=== PATIENT | male | born 1990 | race African-American/Black ===

== ENCOUNTER 2018-12-14 16:08 | Emergency (ER) | payer SELFPAY ==
[~2018-12-14] VITALS: Ht 182.9 cm; Wt 90.7 kg
[2018-12-14 16:39] VITALS: BP 136/90
[2018-12-14] MEDS ORDERED: ORPH-16 PO (16:59)
[2018-12-14] MEDS ORDERED: LACT10SO PO (16:59)
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
[2018-12-14] MEDS ORDERED: HYDROmorphone PF 1 MG/ML DISP.SYRIN IM ONE (17:15)
[2018-12-14] MEDS ORDERED: ORPHENADRINE ER 100 MG TABLET.ER PO ONE (17:15)
[2018-12-14] MEDS ORDERED: HYDROmorphone 2 MG TABLET PO ONE (17:15)
[2018-12-14] MEDS ORDERED: ORPHENADRINE CITRATE 60 MG/2 ML VIAL. IM ONE (17:15)
== END 2018-12-14 17:16 | disposition home or self-care (01) ==
LOC: ER 16:08
DX: G89.18 Other acute postprocedural pain (principal); M25.551 Pain in right hip; K59.00 Constipation, unspecified
CPT/HCPCS: 99283

== ENCOUNTER 2020-10-18 20:30 | Emergency (ER) | payer MEDICAID ==
[~2020-10-18] VITALS: Ht 180.3 cm; Wt 106.0 kg
[~2020-10-18 20:30] MED LIST: LACT10SO2 PO; ORPH-16 PO
[2020-10-18 20:40] VITALS: BP 132/90
[2020-10-18] MEDS ORDERED: HYDR-2759 PO (21:01)
[2020-10-18] MEDS ORDERED: AMOX1TAB61 PO (21:01)
--- NOTE | 2020-10-18 21:01 | PHYS DOC ---
Past History Past Medical History: Asthma, GERD Past Surgical History: Other Additional Past Surgical Histo: per patient, "jules in right leg" Alcohol Use: None Drug Use: None General Adult EDM: Chief Complaint: DENTAL PROBLEM HPI: HPI: 30-year-old male presents with right lower dental pain. The patient was seen by another physician just about 2 weeks ago and placed on 10 days of antibiotics. This improved his dental pain, but his last dose was Monday. Now 2 days later, the pain has come back and he is concerned it still has infection. He is trying to get scheduled with his dentist but his insurance does not kick in for a few more days. Patient denies fever or chills. Review of Systems: Review of Systems: Constitutional: Denies fever or chills Eyes: Denies change in visual acuity HENT: Broken teeth, dental pain Respiratory: Denies cough or shortness of breath Cardiovascular: Denies chest pain or edema GI: Denies abdominal pain, nausea, vomiting, bloody stools or diarrhea : Denies dysuria Musculoskeletal: Denies back pain or joint pain Integument: Denies rash Neurologic: Denies headache, focal weakness or sensory changes Endocrine: Denies polyuria or polydipsia Lymphatic: Denies swollen glands Psychiatric: Denies depression or anxiety Allergies: Allergies: Allergies Coded Allergies Type Severity Reaction Last Updated Verified No Known Drug Allergies 12/14/18 No Physical Exam: PE: Constitutional: Well developed, well nourished, no acute distress, non-toxic appearance. [] HENT: Normocephalic, atraumatic, bilateral external ears normal, oropharynx moist, no oral exudates, nose normal. Poor dentition especially of the bilateral lower molars fractured tooth 32.[] Eyes: PERRLA, EOMI, conjunctiva normal, no discharge. [] Neck: Normal range of motion, no tenderness, supple, no stridor. [] Cardiovascular: Heart rate regular rhythm, no murmur [] Lungs & Thorax: Bilateral breath sounds clear to auscultation [] Abdomen: Bowel sounds normal, soft, no tenderness, no masses, no pulsatile masses. [] Skin: Warm, dry, no erythema, no rash. [] Back: No tenderness, no CVA tenderness. [] Extremities: No tenderness, no cyanosis, no clubbing, ROM intact, no edema. [] Neurologic: Alert and oriented X 3, normal motor function, normal sensory function, no focal deficits noted. [] Psychologic: Affect normal, judgement normal, mood normal. [] Current Patient Data: Vital Signs: Vital Signs Date Time Temp Pulse Resp B/P (MAP) Pulse Ox O2 Delivery O2 Flow Rate FiO2 10/18/20 20:40 98.2 65 18 132/90 (104) 98 Room Air EKG: EKG: [] Radiology/Procedures: Radiology/Procedures: [] Heart Score: C/O Chest Pain: N/A Risk Factors: Risk Factors: DM, Current or recent (<one month) smoker, HTN, HLP, family history of CAD, obesity. Risk Scores: Score 0 - 3: 2.5% MACE over next 6 weeks - Discharge Home Score 4 - 6: 20.3% MACE over next 6 weeks - Admit for Clinical Observation Score 7 - 10: 72.7% MACE over next 6 weeks - Early Invasive Strategies Course & Med Decision Making: Course & Med Decision Making Pertinent Labs and Imaging studies reviewed. (See chart for details) I could not palpate a dental abscess, but I think further infection is highly likely. I will prescribe him another 7 days of Augmentin. I will also give him a short course of [place] for the pain so he can sleep. He will follow-up with the dentist as soon as possible. He is stable for discharge at this time. [] Angie Disclaimer: Angie Disclaimer: This electronic medical record was generated, in whole or in part, using a voice recognition dictation system. Departure Departure: Impression: Primary Impression: Dental infection Disposition: HOME / SELF CARE / HOMELESS Condition: STABLE Referrals: PCP,NO (PCP) Patient Instructions: Dental Pain, [id number] Scripts Amoxicillin/Potassium Clav (AUGMENTIN 875-125 TABLET) 1 Each Tablet 1 TAB PO BID for dental infection for 7 Days, #14 TAB 0 Refills Prov: CROW YARBROUGH DO 10/18/20 Hydrocodone/Acetaminophen (Hydrocodone-Acetamin 5-325 mg) 1 Each Tablet 1 EACH PO Q4-6HRS PRN for PAIN, #10 TAB Prov: CROW YARBROUGH DO 10/18/20 CROW YARBROUGH DO Oct 18, 2020 21:01
[2020-10-18] MEDS ORDERED: AMOXICILLIN/K CLAV 875/125MG TABLET. PO ONE (21:30)
== END 2020-10-18 21:10 | disposition home or self-care (01) ==
LOC: ER 20:30
DX: S02.5XXA Fracture of tooth (traumatic), initial encounter for closed fracture (principal); K04.7 Periapical abscess without sinus; X58.XXXA Exposure to other specified factors, initial encounter; Y93.9 Activity, unspecified; Y92.89 Other specified places as the place of occurrence of the external cause; Y99.8 Other external cause status
CPT/HCPCS: 99283